=== PATIENT | female | born 1970 | race Two or more races ===

== ENCOUNTER 2020-10-17 01:47 | Observation (INO) | payer BC ==
[2020-10-17 02:06] VITALS: BMI 34.4
[2020-10-17] MEDS ORDERED: ACETAMINOPHEN 1000 MG/100 ML VIAL (NON FORMULARY) IVPB ONE (02:35)
[2020-10-17] MEDS ORDERED: ACETAMINOPHEN INJECTION 100 ML IVPB ONE (02:43)
[2020-10-17] MEDS ORDERED: SODIUM CHLORIDE 1,000 ML IV SCH ×2 (02:45→06:18)
[2020-10-17 02:54] LABS: BASO % 0.5 % (0-2.0); EOS % 1.4 % (0-4.5); HEMATOCRIT 39.6 % (32.4-45.2); HEMOGLOBIN 12.8 GM/dL (10.7-15.3); LYMPH % 15.5 % (8-40); MCH 25.1 pg (25.7-33.7); MCHC 32.4 g/dl (32.0-36.0); MEAN CELL VOLUME 77.5 fl (80-96); MONO % 6.9 % (3.8-10.2); NEUT % 75.7 % (42.8-82.8); PLATELET COUNT 340 K/MM3 (134-434); RBC 5.11 M/mm3 (3.60-5.2); RDW 13.6 % (11.6-15.6); WHITE BLOOD COUNT 15.7 K/mm3 (4.0-10.0)
[2020-10-17 03:02] LABS: EPI CELLS 13 /uL (0-25.1); HYALINE CASTS 0 /uL (0-3.1); URINE APPEARANCE CLOUDY; URINE BACTERIA 314 /uL (0-1359); URINE BILIRUBIN NEGATIVE (NEGATIVE); URINE COLOR ORANGE; URINE GLUCOSE (UA) NEGATIVE (NEGATIVE); URINE KETONE NEGATIVE (NEGATIVE); URINE LEUK ESTERASE 1+ (NEGATIVE); URINE NITRITE NEGATIVE (NEGATIVE); URINE PROTEIN TRACE (NEGATIVE); URINE RBC 1270 /uL (0-23.9); URINE UROBILINOGEN 0.2 mg/dL (0.2-1.0); URINE WBC 53 /uL (0-25.8)
[2020-10-17] MEDS ORDERED: CEFTRIAXONE 1 GM/50 ML BAG ONE (03:32)
[2020-10-17 03:36] LABS: CALCIUM 9.6 mg/dL (8.5-10.1)
[2020-10-17 03:37] LABS: ALBUMIN 3.6 g/dl (3.4-5.0); BLOOD UREA NITROGEN 21.8 mg/dL (7-18)
[2020-10-17 03:40] LABS: CREATININE 1.2 mg/dL (0.55-1.3)
[2020-10-17 03:42] LABS: BILIRUBIN,TOTAL 0.4 mg/dL (0.2-1); TOT PROT 7.9 g/dl (6.4-8.2)
[2020-10-17] MEDS ORDERED: KETOROLAC TROMETHAMINE 15 MG/ML VIAL IVPUSH ONE (04:27)
[2020-10-17] MEDS ORDERED: KETOROLAC TROMETHAMINE 15 MG/ML VIAL ONE (04:53)
[2020-10-17 07:35] VITALS: TEMP 97.8
[2020-10-17] MEDS: INSULIN SLIDING SCALE (NOVOLOG) 1 VIAL SQ SCH ×2 (07:48→11:25)
[2020-10-17] MEDS ORDERED: ACETAMINOPHEN 325 MG TABLET (FP) PO PRN ×2 (08:30→09:00)
[2020-10-17 09:59] LABS: CALCIUM 9.4 mg/dL (8.5-10.1)
[2020-10-17 10:00] LABS: ALBUMIN 3.5 g/dl (3.4-5.0); BLOOD UREA NITROGEN 20.4 mg/dL (7-18); MAGNESIUM 1.6 mg/dL (1.8-2.4)
[2020-10-17 10:03] LABS: CREATININE 1.3 mg/dL (0.55-1.3)
[2020-10-17 10:04] LABS: BILIRUBIN,TOTAL 0.3 mg/dL (0.2-1)
[2020-10-17 10:05] LABS: TOT PROT 7.2 g/dl (6.4-8.2)
[2020-10-17 10:06] LABS: PHOSPHOROUS 4.6 mg/dL (2.5-4.9)
[2020-10-17] MEDS ORDERED: MAGNESIUM SULF 50% (8.12 MEQ/2 ML-1 GM VIAL) IVPB ONE (12:35)
[2020-10-17] MEDS ORDERED: SODIUM CHLORIDE 0.45% 1,000 ML IV SCH (12:45)
[2020-10-17] MEDS ORDERED: amLODIPine BESYLATE 5 MG TABLET (FP) PO ONE (12:45)
[2020-10-17] MEDS ORDERED: amLODIPine BESYLATE 5 MG TABLET (FP) ONE ×2 (12:54→14:09)
[2020-10-17] MEDS ORDERED: MAGNESIUM SULFATE IN WATER 2 GM/50 ML IVPB IVPB ONE (12:55)
[2020-10-17 14:14] VITALS: BP 157/106; PULSE 87
== END 2020-10-17 14:50 | disposition home or self-care (01) ==
LOC: JER 01:47 → UNDOADMOB 04:24 → JERBED 04:24 → INTOOBSV 04:24 → JERBED 14:04
PROVIDERS: ADMIT Hospitalist; ATTEND Internal Medicine
PROC: 3E033NZ Introduction of Analgesics, Hypnotics, Sedatives into Peripheral Vein, Percutaneous Approach (ICD-10-PCS; principal; 2020-10-17)
PROC: 3E033GC Introduction of Other Therapeutic Substance into Peripheral Vein, Percutaneous Approach (ICD-10-PCS; 2020-10-17)
PROC: 3E03329 Introduction of Other Anti-infective into Peripheral Vein, Percutaneous Approach (ICD-10-PCS; 2020-10-17)
PROC: 3E0333Z Introduction of Anti-inflammatory into Peripheral Vein, Percutaneous Approach (ICD-10-PCS; 2020-10-17)
PROC: 3E0337Z Introduction of Electrolytic and Water Balance Substance into Peripheral Vein, Percutaneous Approach (ICD-10-PCS; 2020-10-17)
DX: R31.9 Hematuria, unspecified (principal); E11.9 Type 2 diabetes mellitus without complications; N20.0 Calculus of kidney; I10 Essential (primary) hypertension; Z87.442 Personal history of urinary calculi; Z68.34 Body mass index [BMI] 34.0-34.9, adult; E66.9 Obesity, unspecified; N20.9 Urinary calculus, unspecified; N39.0 Urinary tract infection, site not specified; Z29.9 Encounter for prophylactic measures, unspecified; Z88.8 Allergy status to other drugs, medicaments and biological substances; N13.1 Hydronephrosis with ureteral stricture, not elsewhere classified
CPT/HCPCS: 36415; 74176-TC; 76775-TC; 80053; 81003; 82962; 83735; 84100; 84703; 85025; 87086; 93005; 93010; 99285-25; C9803; G0378; J0131; U0003; U0005

== ENCOUNTER 2022-06-30 07:12 | Emergency (ER) | payer BC ==
[2022-06-30 07:48] VITALS: BP 158/105; PULSE 111; RESP 18; TEMP 98; BMI 34.0
[2022-06-30] MEDS ORDERED: diphenhydrAMINE HCL 25 MG CAPSULE (FP) PO ONE ×2 (08:00→08:17)
[2022-06-30] MEDS ORDERED: predniSONE 20 MG TABLET (UD) PO ONE (08:01)
[2022-06-30] MEDS ORDERED: predniSONE 20 MG TABLET (UD) ONE (08:17)
== END 2022-06-30 09:48 | disposition home or self-care (01) ==
LOC: JERFT 07:12 → JER 07:12 → JERFT 09:48
DX: R21 Rash and other nonspecific skin eruption (principal)
CPT/HCPCS: 99283-25